=== PATIENT | male | born 1955 ===

== ENCOUNTER 2021-03-26 05:45 | Day surgery (SDC) | payer OTHER ==
[2021-03-26] MEDS ORDERED: RECTICARE30 GM TOP (08:46)
[2021-03-26] MEDS ORDERED: PERCOCET 5-3251 EACH PO (08:46)
== END 2021-03-26 11:35 | disposition home or self-care (01) ==
LOC: CIR.AMB 05:45
PROVIDERS: ATTEND Surgery
DX: K64.2 Third degree hemorrhoids (principal); Z20.822 Contact with and (suspected) exposure to COVID-19